=== PATIENT | female | born 1995 | race Caucasian/White ===

== ENCOUNTER 2017-02-12 21:12 | Emergency (ER) | payer BC, MEDICAID ==
--- NOTE | 2017-02-12 22:35 | EDM.PDOC ---
ED HPI GENERAL MEDICAL PROBLEM - General Chief Complaint: ENT Problem Stated Complaint: PT HAS TOOTHACHE Time Seen by Provider: 02/12/17 22:34 Source of Information: Reports: Patient - History of Present Illness INITIAL COMMENTS - FREE TEXT/NARRATIVE: HISTORY AND PHYSICAL: History of present illness: Patient is at approximately 13-3/7 weeks by dates LMP is November 10, 2016 she is followed through [facility] for her OB needs she has no symptoms relating to the no vaginal fluid leakage spotting bleeding pain low back pain or discharge Patient has dental pain she rated 6 out of 10 intermittently wax and wanes in severity appears that her wisdom teeth are coming in there is some swelling surrounding L Pl. her on antibiotics penicillin to cover that she should follow- up with dentist as soon as possible for evaluation and further treatment She's been using Tylenol for pain will also provide some dental balls No fever nausea vomiting chills sweats Review of systems: As per history of present illness and below otherwise all systems reviewed and negative. Past medical history: As per history of present illness and as reviewed below otherwise noncontributory. Surgical history: As per history of present illness and as reviewed below otherwise noncontributory. Social history: No reported history of drug or alcohol abuse. Family history: As per history of present illness and as reviewed below otherwise noncontributory. Physical exam: HEENT: Atraumatic, normocephalic, pupils reactive, negative for conjunctival pallor or scleral icterus, mucous membranes moist, throat clear, neck supple, nontender, trachea midline. Tenderness along lower gumline definitely wisdom teeth are coming in most of her pain is associated on the left rear tooth Lungs: Clear to auscultation, breath sounds equal bilaterally, chest nontender. Heart: S1S2, regular, negative for clicks, rubs, or JVD. Abdomen: Soft, nondistended, nontender. Negative for masses or hepatosplenomegaly. Negative for costovertebral tenderness. Pelvis: Stable nontender. Genitourinary: Deferred. Rectal: Deferred. Extremities: Atraumatic, negative for cords or calf pain. Neurovascular unremarkable. Neuro: Awake, alert, oriented. Cranial nerves II through XII unremarkable. Cerebellum unremarkable. Motor and sensory unremarkable throughout. Exam nonfocal. Diagnostics: [] Therapeutics: []Continue Tylenol 650 mg 3 times daily 7-10 days Amoxicillin 500 by mouth twice a day #20 no refill Follow-up with dentist as soon as possible Impression: []Dental pain secondary to wisdom teeth Definitive disposition and diagnosis as appropriate pending reevaluation and review of above. Left Lower Oral/Mouth Pain Score (Numeric/FACES): 3 - Related Data Allergies Allergy/AdvReac Type Severity Reaction Status Date / Time No Known Allergies Allergy Verified 02/12/17 22:34 Home Meds: Home Meds Vit W-Ca,Fe,FA(<1 mg) [ Vitamins] 1 tab PO DAILY 02/12/17 [ History] ED ROS GENERAL - Review of Systems Review Of Systems: ROS reveals no pertinent complaints other than HPI. ED EXAM, GENERAL - Physical Exam Exam: See Below Course - Vital Signs Last Recorded V/S: Last Vital Signs Temp 36.7 C 02/12/17 22:32 Pulse 92 02/12/17 22:32 Resp 16 02/12/17 22:32 BP 121/65 02/12/17 22:32 Pulse Ox 99 02/12/17 22:32 Departure - Departure Time of Disposition: 22:38 Disposition: Home, Self-Care 01 Condition: Good Clinical Impression: Pain, dental - Discharge Information Forms: ED Department Discharge Additional Instructions: Medication as prescribed Tylenol 650 mg 3 times daily 7-10 days Dental balls Follow-up with dentist as soon as possible Provide list of area dentist The following information is given to patients seen in the emergency department who are being discharged to home. This information is to outline your options for follow-up care. We provide all patients seen in our emergency department with a follow-up referral. The need for follow-up, as well as the timing and circumstances, are variable depending upon the specifics of your emergency department visit. If you don't have a primary care physician on staff, we will provide you with a referral. We always advise you to contact your personal physician following an emergency department visit to inform them of the circumstance of the visit and for follow-up with them and/or the need for any referrals to a consulting specialist. The emergency department will also refer you to a specialist when appropriate. This referral assures that you have the opportunity for follow-up care with a specialist. All of these measure are taken in an effort to provide you with optimal care, which includes your follow-up. Under all circumstances we always encourage you to contact your private physician who remains a resource for coordinating your care. When calling for follow-up care, please make the office aware that this follow-up is from your recent emergency room visit. If for any reason you are refused follow-up, please contact the [facility] emergency department at and asked to speak to the emergency department charge nurse.
[2017-02-12] MEDS ORDERED: Benzocaine 20% Topical Spray UD MUCMEM ONE (22:53)
[2017-02-12] MEDS ORDERED: Lidocaine 2% Viscous Solution 15 ML Cup ONE (22:53)
[2017-02-13] MEDS ORDERED: Lidocaine 2% Viscous Solution 15 ML Cup PO ONE (01:17)
[2017-02-13] MEDS ORDERED: Benzocaine 20% Topical Spray UD MUCMEM ONE (01:18)
[2017-02-13 01:22] VITALS: BP 120/63
== END 2017-02-12 22:58 | disposition home or self-care (01) ==
LOC: MW.ED 21:12
DX: O99.89 Other specified diseases and conditions complicating pregnancy, childbirth and the puerperium (principal); K08.89 Other specified disorders of teeth and supporting structures; Z3A.13 13 weeks gestation of pregnancy
CPT/HCPCS: 99282; A9270; 99283

== ENCOUNTER 2018-04-18 07:40 | Emergency (ER) | payer BC, MEDICAID ==
[2018-04-18 08:23] VITALS: BP 131/76
--- NOTE | 2018-04-18 08:57 | EDM.PDOC ---
ED HPI GENERAL MEDICAL PROBLEM - General Chief Complaint: ENT Problem Stated Complaint: EAR INFECTION- LEFT EAR Time Seen by Provider: 04/18/18 08:44 - History of Present Illness INITIAL COMMENTS - FREE TEXT/NARRATIVE: HISTORY AND PHYSICAL: History of present illness: The patient is a 22 year old female with a 2 day history of left ear pain and fever. She reports history of multiple ear infections since July. Last time she needed antibiotics was several months ago. She also endorses subjective fever. No nasal congestion, sore throat, headache, or chills. Review of systems: As per history of present illness and below otherwise all systems reviewed and negative. Past medical history: As per history of present illness and as reviewed below otherwise noncontributory. Surgical history: As per history of present illness and as reviewed below otherwise noncontributory. Social history: No reported history of drug or alcohol abuse. Family history: As per history of present illness and as reviewed below otherwise noncontributory. Physical exam: HEENT: Atraumatic, normocephalic, pupils reactive, negative for conjunctival pallor or scleral icterus, mucous membranes moist, throat clear, neck supple, nontender, trachea midline. Left TM with erythema, no mastoid tenderness or pain with movement of external ear. Lungs: Clear to auscultation, breath sounds equal bilaterally, chest nontender. Heart: S1S2, regular, negative for clicks, rubs, or JVD. Abdomen: Soft, nondistended, nontender. Neuro: Awake, alert, oriented. Cranial nerves II through XII unremarkable. Cerebellum unremarkable. Motor and sensory unremarkable throughout. Exam nonfocal. Diagnostics: [None] Therapeutics: [None] Impression: [Left otitis media] Plan: [Home with prescription for amoxicillin] Definitive disposition and diagnosis as appropriate pending reevaluation and review of above. 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 Surgical History HEENT Surgical History: Reports: Tonsillectomy Social & Family History - Family History Family Medical History: Noncontributory - Tobacco Use Smoking Status *Q: Never Smoker Second Hand Smoke Exposure: No - Caffeine Use Caffeine Use: Reports: Coffee, Energy Drinks, Soda, Tea - Recreational Drug Use Recreational Drug Use: No ED ROS ENT - Review of Systems Review Of Systems: See Below (See dictation) ED EXAM, ENT - Physical Exam Exam: See Below (See dictation) Course - Vital Signs Last Recorded V/S: Last Vital Signs Temp 97.5 F 04/18/18 08:20 Pulse 85 04/18/18 08:20 Resp 16 04/18/18 08:20 BP 131/76 04/18/18 08:20 Pulse Ox 99 04/18/18 08:20 Departure - Departure Time of Disposition: 08:56 Disposition: Home, Self-Care 01 Condition: Good Clinical Impression: Otitis media - Discharge Information *PRESCRIPTION DRUG MONITORING PROGRAM REVIEWED*: Not Applicable *COPY OF PRESCRIPTION DRUG MONITORING REPORT IN PATIENT HEIDI: Not Applicable Prescriptions: Amoxicillin 500 mg PO BID 10 Days #20 tab Instructions: Otitis Media, Adult, [id number] Referrals: PCP,None [Primary Care Provider] - Forms: ED Department Discharge Additional Instructions: My general discharge The following information is given to patients seen in the emergency department who are being discharged to home. This information is to outline your options for follow-up care. We provide all patients seen in our emergency department with a follow-up referral. The need for follow-up, as well as the timing and circumstances, are variable depending upon the specifics of your emergency department visit. If you don't have a primary care physician on staff, we will provide you with a referral. We always advise you to contact your personal physician following an emergency department visit to inform them of the circumstance of the visit and for follow-up with them and/or the need for any referrals to a consulting specialist. The emergency department will also refer you to a specialist when appropriate. This referral assures that you have the opportunity for follow-up care with a specialist. All of these measure are taken in an effort to provide you with optimal care, which includes your follow-up. Under all circumstances we always encourage you to contact your private physician who remains a resource for coordinating your care. When calling for follow-up care, please make the office aware that this follow-up is from your recent emergency room visit. If for any reason you are refused follow-up, please contact the [facility] Emergency Department at and asked to speak to the emergency department charge nurse. My Primary Care [facility] [address] [place] [id number] Please follow up with your primary care provider if no improvement or worsening of symptoms.
== END 2018-04-18 09:30 | disposition home or self-care (01) ==
LOC: MW.ED 07:40
DX: H66.92 Otitis media, unspecified, left ear (principal); Z98.890 Other specified postprocedural states
CPT/HCPCS: 99282

== ENCOUNTER 2018-12-01 10:42 | Emergency (ER) | payer BC, OTHER ==
--- NOTE | 2018-12-01 10:54 | EDM.PDOC ---
ED HPI GENERAL MEDICAL PROBLEM - General Chief Complaint: Laceration Stated Complaint: LACERATION ON FINGER Time Seen by Provider: 12/01/18 10:43 Source of Information: Reports: Patient History Limitations: Reports: No Limitations - History of Present Illness INITIAL COMMENTS - FREE TEXT/NARRATIVE: HISTORY AND PHYSICAL: History of present illness: Patient is a 23-year-old female who presents to the emergency room with complaints of a laceration to her left index finger below the MIP joint. Patient works at [employer] and was cutting up some food when she knew her finger. Appears to have no tendon involvement. There is no current bleeding. Offers no other complaints or concerns other than the laceration. Tdap has been updated in the last 5 years. Review of systems: As per history of present illness and below otherwise all systems reviewed and negative. Past medical history: As per history of present illness and as reviewed below otherwise noncontributory. Surgical history: As per history of present illness and as reviewed below otherwise noncontributory. Social history: See social history for further information Family history: As per history of present illness and as reviewed below otherwise noncontributory. Physical exam: General: Well-developed and well-nourished 23-year-old female. Alert and oriented. Nontoxic appearing and in no acute distress. HEENT: Atraumatic, normocephalic, pupils equal and reactive bilaterally, negative for conjunctival pallor or scleral icterus, mucous membranes moist, trachea midline. No drooling or trismus noted. No meningeal signs. No hot potato voice noted. Lungs: Clear to auscultation, breath sounds equal bilaterally, chest nontender. Heart: S1S2, regular rate and rhythm without overt murmur Skin: 1 cm superficial laceration to the left index finger below the MIP joint. Otherwise skin is intact, warm, dry. No lesions or rashes noted. Extremities: See skin, moves all extremities per self without difficulty or deficits, appears to have no tendon involvement. Neurovascular unremarkable. Neuro: Awake, alert, oriented. Cranial nerves II through XII unremarkable. Cerebellum unremarkable. Motor and sensory unremarkable throughout. Exam nonfocal. Notes: Patient is tearful stating she doesn't want stitches. The laceration does appear that it will do well with Dermabond. Area was thoroughly cleansed with chlorhexidine and patted dry. Dermabond was used to close the superficial laceration. A spoon splint/nonstick dressing applied for comfort. Supportive care measures were reviewed and discussed. Voices understanding and is agreeable to plan of care. Denies any further questions or concerns at this time. Diagnostics: None Therapeutics: Wound care, Dermabond, spoon splint Prescription: None Impression: Finger laceration Plan: 1. Keep the area clean and dry. Continue to monitor for signs of infection. Dermabond will fall off in 3-7 days (do not pull off). 2. Tylenol and/or ibuprofen as needed for pain management. 3. Please follow-up with your primary care provider in the next 1-2 days. Return to the ED as needed and as discussed. Definitive disposition and diagnosis as appropriate pending reevaluation and review of above. Left Finger-Index Pain Score (Numeric/FACES): 1 - Related Data Allergies Allergy/AdvReac Type Severity Reaction Status Date / Time No Known Allergies Allergy Verified 12/01/18 10:55 Home Meds: Home Meds . 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 ED EXAM, SKIN/RASH Exam: See Below (See dictation) ED SKIN PROCEDURES - Laceration/Wound Repair Left index finger Lac/Wound length In cm: 1 Appearance: Superficial, Clean Distal NVT: Neuro & Vascular Intact, No Tendon Injury Skin Prep: Chlorhexidine (Hibiciens) Exploration/Debridement/Repair: Wound Explored, No Foreign Material Found Closed with: Dermabond Drain Placement: No Sterile Dressing Applied: None Tetanus Status Addressed: Yes Complications: No Course - Vital Signs Last Recorded V/S: Last Vital Signs Temp 97.8 F 12/01/18 10:50 Pulse 95 12/01/18 10:50 Resp 18 12/01/18 10:50 BP 132/82 12/01/18 10:50 Pulse Ox 100 12/01/18 10:50 - Orders/Labs/Meds Meds: Medications Discontinued Medications Generic Name Dose Route Start Last Admin Trade Name Lisa PRN Reason Stop Dose Admin Octyl Cyanoacrylate 1 applic 12/01/18 10:58 Dermabond Advance TOP 12/01/18 10:59 ONETIME ONE Departure - Departure Time of Disposition: 11:01 Disposition: Home, Self-Care 01 Clinical Impression: Finger laceration Qualifiers: Encounter type: initial encounter Finger: index finger Damage to nail status: without damage Foreign body presence: without foreign body Laterality: left Qualified Code(s): S61.211A - Laceration without foreign body of left index finger without damage to nail, initial encounter - Discharge Information Instructions: Laceration Care, Adult, [id number] Referrals: PCP,None [Primary Care Provider] - Forms: ED Department Discharge Additional Instructions: The following information is given to patients seen in the emergency department who are being discharged to home. This information is to outline your options for follow-up care. We provide all patients seen in our emergency department with a follow-up referral. The need for follow-up, as well as the timing and circumstances, are variable depending upon the specifics of your emergency department visit. If you don't have a primary care physician on staff, we will provide you with a referral. We always advise you to contact your personal physician following an emergency department visit to inform them of the circumstance of the visit and for follow-up with them and/or the need for any referrals to a consulting specialist. The emergency department will also refer you to a specialist when appropriate. This referral assures that you have the opportunity for follow-up care with a specialist. All of these measure are taken in an effort to provide you with optimal care, which includes your follow-up. Under all circumstances we always encourage you to contact your private physician who remains a resource for coordinating your care. When calling for follow-up care, please make the office aware that this follow-up is from your recent emergency room visit. If for any reason you are refused follow-up, please contact the [facility] Emergency Department at and asked to speak to the emergency department charge nurse. [facility] Primary [facility] [address] [place] [id number] [facility] [address] [place] [phone] 1. Keep the area clean and dry. Continue to monitor for signs of infection. Dermabond will fall off in 3-7 days (do not pull off). 2. Tylenol and/or ibuprofen as needed for pain management. 3. Please follow-up with your primary care provider in the next 1-2 days. Return to the ED as needed and as discussed.
[2018-12-01] MEDS ORDERED: Octyl 2-Cyanoacrylate 1 Tube TOP ONE (10:58)
[2018-12-01 11:49] VITALS: BP 128/76
== END 2018-12-01 11:49 | disposition home or self-care (01) ==
LOC: MW.ED 10:42
DX: S61.211A Laceration without foreign body of left index finger without damage to nail, initial encounter (principal); W45.8XXA Other foreign body or object entering through skin, initial encounter
CPT/HCPCS: 12001; 99282; A9270

== ENCOUNTER 2019-01-22 00:17 | Emergency (ER) | payer BC, OTHER ==
--- NOTE | 2019-01-22 00:35 | EDM.PDOC ---
ED HPI GENERAL MEDICAL PROBLEM - General Chief Complaint: Flank Pain Time Seen by Provider: 01/22/19 00:27 - History of Present Illness INITIAL COMMENTS - FREE TEXT/NARRATIVE: HISTORY AND PHYSICAL: History of present illness: Patient's 23-year-old female presents with a concern of discomfort and frequency of urination. No fever chills nausea vomiting or other concern. Review of systems: As per history of present illness and below otherwise all systems reviewed and negative. Past medical history: As per history of present illness and as reviewed below otherwise noncontributory. Surgical history: As per history of present illness and as reviewed below otherwise noncontributory. Social history: No reported history of drug or alcohol abuse. Family history: As per history of present illness and as reviewed below otherwise noncontributory. Physical exam: HEENT: Atraumatic, normocephalic, pupils reactive, negative for conjunctival pallor or scleral icterus, mucous membranes moist, throat clear, neck supple, nontender, trachea midline. Lungs: Clear to auscultation, breath sounds equal bilaterally, chest nontender. Heart: S1S2, regular, negative for clicks, rubs, or JVD. Abdomen: Soft, nondistended, nontender. Negative for masses or hepatosplenomegaly. Negative for costovertebral tenderness. Pelvis: Stable nontender. Genitourinary: Deferred. Rectal: Deferred. Extremities: Atraumatic, negative for cords or calf pain. Neurovascular unremarkable. Neuro: Awake, alert, oriented. Cranial nerves II through XII unremarkable. Cerebellum unremarkable. Motor and sensory unremarkable throughout. Exam nonfocal. Diagnostics: UA hCG Therapeutics: None Impression: #1 urinary tract infection Definitive disposition and diagnosis as appropriate pending reevaluation and review of above. left flank Pain Score (Numeric/FACES): 8 - Related Data Allergies Allergy/AdvReac Type Severity Reaction Status Date / Time No Known Allergies Allergy Verified 01/22/19 00:23 Home Meds: Home Meds . 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 ED EXAM, GENERAL - Physical Exam Exam: See Below (See dictation) Course - Vital Signs Last Recorded V/S: Last Vital Signs Temp 35.6 C 01/22/19 00:20 Pulse 90 01/22/19 00:20 Resp 17 01/22/19 00:20 BP 133/77 01/22/19 00:20 Pulse Ox 98 01/22/19 00:20 - Orders/Labs/Meds Orders: Active Orders 24 hr Category Date Time Status HCG QUALITATIVE,URINE [URCHEM] Stat Lab 01/22/19 00:24 Ordered Departure - Departure Time of Disposition: 00:33 Disposition: Home, Self-Care 01 Condition: Good Clinical Impression: UTI, Urinary tract infectious disease - Discharge Information Referrals: PCP,None [Primary Care Provider] - Additional Instructions: The following information is given to patients seen in the emergency department who are being discharged to home. This information is to outline your options for follow-up care. We provide all patients seen in our emergency department with a follow-up referral. The need for follow-up, as well as the timing and circumstances, are variable depending upon the specifics of your emergency department visit. If you don't have a primary care physician on staff, we will provide you with a referral. We always advise you to contact your personal physician following an emergency department visit to inform them of the circumstance of the visit and for follow-up with them and/or the need for any referrals to a consulting specialist. The emergency department will also refer you to a specialist when appropriate. This referral assures that you have the opportunity for followup care with a specialist. All of these measure are taken in an effort to provide you with optimal care, which includes your followup. Under all circumstances we always encourage you to contact your private physician who remains a resource for coordinating your care. When calling for followup care, please make the office aware that this follow-up is from your recent emergency room visit. If for any reason you are refused follow-up, please contact the [facility] emergency department at and asked to speak to the emergency department charge nurse. [facility] [address] [place] [id number] Bactrim as prescribed Pyridium as prescribed follow-up primary care above return as needed as discussed - My Orders Last 24 Hours: My Active Orders 01/22/19 00:24 HCG QUALITATIVE,URINE [URCHEM] Stat - Assessment/Plan Last 24 Hours: My Active Orders 01/22/19 00:24 HCG QUALITATIVE,URINE [URCHEM] Stat
[2019-01-22 01:12] VITALS: BP 133/77
== END 2019-01-22 01:13 | disposition home or self-care (01) ==
LOC: MW.ED 00:17
DX: N39.0 Urinary tract infection, site not specified (principal); Z98.890 Other specified postprocedural states
CPT/HCPCS: 81001; 81025; 99284

== ENCOUNTER 2019-05-04 11:53 | Emergency (ER) | payer SELFPAY ==
[2019-05-04 12:08] VITALS: BP 108/73; PULSE 93
--- NOTE | 2019-05-04 12:12 | EDM.PDOC ---
ED HPI GENERAL MEDICAL PROBLEM - General Chief Complaint: ENT Problem Stated Complaint: VOMITING Time Seen by Provider: 05/04/19 11:54 Source of Information: Reports: Patient History Limitations: Reports: No Limitations - History of Present Illness INITIAL COMMENTS - FREE TEXT/NARRATIVE: History of present illness: []She has had 2 days of headache, congestion, ear pain, vomiting and dizziness. She's having hot and cold flashes and has measured a 101 temperature. He denies a Sore throat or difficulty breathing. Review of systems: As per history of present illness and below otherwise all systems reviewed and negative. Past medical history: As per history of present illness and as reviewed below otherwise noncontributory. Surgical history: As per history of present illness and as reviewed below otherwise noncontributory. Social history: No reported history of drug or alcohol abuse. Family history: As per history of present illness and as reviewed below otherwise noncontributory. Physical exam: General: Well developed, well nourished in NAD HEENT: Atraumatic, normocephalic, pupils reactive, negative for conjunctival pallor or scleral icterus, mucous membranes moist, throat clear, neck supple, nontender, trachea midline. TMs clear, frontal and left maxillary sinus tenderness to palpation, no stridor Lungs: Clear to auscultation, breath sounds equal bilaterally, chest nontender. No wheezing or rhonchi Heart: S1S2, regular, negative for clicks, rubs, or JVD. Abdomen: NABS, Soft, nondistended, nontender. Negative for masses or hepatosplenomegaly. Negative for costovertebral tenderness. Pelvis: Stable nontender. Genitourinary: Deferred. Rectal: Deferred. Extremities: Atraumatic, negative for cords or calf pain. Neurovascular unremarkable. Neuro: Awake, alert, oriented. Cranial nerves II through XII unremarkable. Cerebellum unremarkable. Motor and sensory unremarkable throughout. Exam nonfocal. Skin:warm and dry Diagnostics: None Therapeutics: None ED Course: Stable Impression: Acute sinusitis Prescriptions: Amoxicillin Plan: Take meds as directed, follow up with your primary care physician, return to ER if symptoms worsen or change. Definitive disposition and diagnosis as appropriate pending reevaluation and review of above. Head Pain Score (Numeric/FACES): 5 - Related Data Allergies Allergy/AdvReac Type Severity Reaction Status Date / Time No Known Allergies Allergy Verified 05/04/19 12:05 Home Meds: Home Meds Amoxicillin 500 mg PO TID #21 capsule 05/04/19 [Rx] Ondansetron HCl [Zofran] 4 mg PO Q4HR #12 tablet 05/04/19 [Rx] Past Medical History - Past Health History Medical/Surgical History: Denies Medical/Surgical History A[employer] MED[employer] CLAIMS History: Reports: - Infectious Disease History Infectious Disease History: Reports: None - Past Surgical History HEENT Surgical History: Reports: Tonsillectomy Social & Family History - Family History Family Medical History: Noncontributory - Tobacco Use Smoking Status *Q: Never Smoker - Caffeine Use Caffeine Use: Reports: Coffee - Recreational Drug Use Recreational Drug Use: No ED ROS ENT - Review of Systems Review Of Systems: See Below ED EXAM, ENT - Physical Exam Exam: See Below Course - Vital Signs Last Recorded V/S: Last Vital Signs Temp 97.9 F 05/04/19 12:05 Pulse 93 05/04/19 12:05 Resp 16 05/04/19 12:05 BP 108/73 05/04/19 12:05 Pulse Ox 96 05/04/19 12:05 Departure - Departure Time of Disposition: 12:12 Disposition: Home, Self-Care 01 Condition: Good Clinical Impression: Acute sinusitis Qualifiers: Sinusitis location: frontal Recurrence: non-recurrent Qualified Code(s): J01.10 - Acute frontal sinusitis, unspecified - Discharge Information *PRESCRIPTION DRUG MONITORING PROGRAM REVIEWED*: No *COPY OF PRESCRIPTION DRUG MONITORING REPORT IN PATIENT HEIDI: No Prescriptions: Ondansetron HCl [Zofran] 4 mg PO Q4HR #12 tablet Amoxicillin 500 mg PO TID #21 capsule Referrals: PCP,Unknown [Primary Care Provider] - Forms: ED Department Discharge Additional Instructions: The following information is given to patients seen in the emergency department who are being discharged to home. This information is to outline your options for follow-up care. We provide all patients seen in our emergency department with a follow-up referral. The need for follow-up, as well as the timing and circumstances, are variable depending upon the specifics of your emergency department visit. If you don't have a primary care physician on staff, we will provide you with a referral. We always advise you to contact your personal physician following an emergency department visit to inform them of the circumstance of the visit and for follow-up with them and/or the need for any referrals to a consulting specialist. The emergency department will also refer you to a specialist when appropriate. This referral assures that you have the opportunity for follow-up care with a specialist. All of these measure are taken in an effort to provide you with optimal care, which includes your follow-up. Under all circumstances we always encourage you to contact your private physician who remains a resource for coordinating your care. When calling for follow-up care, please make the office aware that this follow-up is from your recent emergency room visit. If for any reason you are refused follow-up, please contact the [facility] Emergency Department at and asked to speak to the emergency department charge nurse. Take meds as directed, follow up with your primary care physician, return to ER if symptoms worsen or change. [facility] Primary [facility] [address] [place] [id number]
== END 2019-05-04 12:25 | disposition home or self-care (01) ==
LOC: MW.ED 11:53
DX: J01.10 Acute frontal sinusitis, unspecified (principal)
CPT/HCPCS: 99282

== ENCOUNTER 2022-09-26 16:19 | Inpatient (IN) | payer MEDICAID ==
[2022-09-26] MEDS ORDERED: Butorphanol 1 MG/ML SDV IVPUSH ONE (17:53)
[2022-09-26] MEDS ORDERED: Carboprost Tromethamine 250 MCG/1 ML Amp IM PRN (19:09)
[2022-09-26] MEDS ORDERED: Sodium Chloride 0.9% 20 ML SDV IV PRN (19:09)
[2022-09-26] MEDS ORDERED: Butorphanol 1 MG/ML SDV IVPUSH PRN (19:09)
[2022-09-26] MEDS ORDERED: Sodium Chloride 0.9% 2.5 ML Syringe FLUSH PRN (19:09)
[2022-09-26] MEDS ORDERED: Misoprostol 200 MCG Tab PO PRN (19:09)
[2022-09-26] MEDS ORDERED: Methylergonovine 0.2 MG/1 ML Amp IM PRN (19:09)
[2022-09-26] MEDS ORDERED: Water For Irrigation,Sterile 1,000 ML Container IRR PRN (19:09)
[2022-09-26] MEDS ORDERED: Sodium Chloride 0.9% 10 ML Syringe FLUSH PRN (19:09)
[2022-09-26] MEDS ORDERED: Tranexamic Acid 1,000 MG in Sodium Chloride 0.9% 100 ML IV PRN (19:09)
[2022-09-26] MEDS ORDERED: Lidocaine 1% 50 ML MDV INJECT PRN (19:09)
[2022-09-26] MEDS ORDERED: Oxytocin/0.9 % Sodium Chloride 30 UNIT/500 ML BAG IV SCH (19:15)
[2022-09-26] MEDS ORDERED: Phenylephrine HCl In 0.9% NaCl 1 MG/10 ML Vial IVPUSH PRN (19:19)
[2022-09-26] MEDS ORDERED: ePHEDrine 50 MG/ML SDV IVPUSH PRN ×2 (19:19)
[2022-09-26] MEDS ORDERED: Ropivacaine HCl/PF 400 MG in Premix Bag 1 BAG EPIDUR SCH (19:30)
[2022-09-26] MEDS: Lactated Ringers 1,000 ML IV SCH ×2 (19:35→22:43)
[2022-09-26] MEDS ORDERED: Dexmedetomidine 200 MCG/2 ML SDV ONE (19:36)
[2022-09-26] MEDS ORDERED: Sodium Chloride 0.9% 0 ML ONE (19:36)
[2022-09-26] MEDS ORDERED: Ampicillin 2 GM Vial ONE (19:36)
[2022-09-26] MEDS ORDERED: Ondansetron 4 MG/2 ML SDV IVPUSH PRN (23:02)
[2022-09-26] MEDS: Phenylephrine HCl In 0.9% NaCl 1 MG/10 ML Vial IVPUSH SCH (23:40)
[2022-09-27] MEDS ORDERED: Lanolin 100% Cream 7 GM Tube TOP PRN (02:38)
[2022-09-27] MEDS ORDERED: Docusate Sodium 100 MG Cap PO PRN (02:38)
[2022-09-27] MEDS ORDERED: oxyCODONE 5 MG Tab PO PRN (02:38)
[2022-09-27] MEDS ORDERED: Acetaminophen 500 MG Tab PO PRN ×2 (02:38)
[2022-09-27] MEDS ORDERED: Witch Hazel Medicated Pads 40/Jar TOP PRN (02:38)
[2022-09-27] MEDS ORDERED: Ibuprofen 400 MG Tab PO PRN (02:38)
[2022-09-27] MEDS ORDERED: Bisacodyl 10 MG Supp RECTAL PRN (02:38)
[2022-09-27] MEDS ORDERED: Benzocaine/Menthol 20%-0.5% Spray 78 GM Cannister TOP PRN (02:38)
[2022-09-27] MEDS: Ibuprofen 800 MG Tab PO PRN ×2 (06:14→16:04)
[2022-09-28 09:05] VITALS: BP 91/53; PULSE 67
== END 2022-09-28 02:30 | disposition home or self-care (01) | DRG 807 ==
LOC: MW.OBCHECK 16:19 → MW.OB 16:19 → MW.OBCHECK 19:09 → OBSVTOIN 09-27 02:28 → MW.OB 09-27 05:45
PROVIDERS: ADMIT Obstetrics & Gynecology; ATTEND Obstetrics & Gynecology
PROC: 10E0XZZ Delivery of Products of Conception, External Approach (ICD-10-PCS; principal; 2022-09-27)
PROC: 3E0R3BZ Introduction of Anesthetic Agent into Spinal Canal, Percutaneous Approach (ICD-10-PCS; 2022-09-27)
PROC: 00HU33Z Insertion of Infusion Device into Spinal Canal, Percutaneous Approach (ICD-10-PCS; 2022-09-27)
DX: O80 Encounter for full-term uncomplicated delivery (principal); Z37.0 Single live birth; Z20.822 Contact with and (suspected) exposure to COVID-19; Z3A.38 38 weeks gestation of pregnancy
CPT/HCPCS: 01967; 36415; 51702; 59025; 59409; 80305-QW; 81003; 85014; 85018; 85027; 86592; 86762; 86803; 86850; 86900; 86901; 87340; 87389; A9270-GY; J0595; J2405; J2590; J3490; J7120; U0002

== ENCOUNTER 2023-06-18 21:33 | Day surgery (SDC) | payer MEDICAID ==
[2023-06-18] MEDS ORDERED: Sodium Chloride 0.9% 10 ML Syringe FLUSH PRN (21:57)
[2023-06-18] MEDS ORDERED: Sodium Chloride 0.9% 2.5 ML Syringe FLUSH PRN (21:57)
[2023-06-18 22:20] LABS: BASOPHILS ABSOLUTE AUTO 0.04 K/uL (0.00-0.20); BASOPHILS PERCENT AUTO 0.4 % (0.0-1.0); EOSINOPHILS ABSOLUTE AUTO 0.15 K/uL (0.00-0.45); EOSINOPHILS PERCENT AUTO 1.5 % (0.0-6.0); HEMOGLOBIN 8.9 g/dL (12.0-16.0); IMMATURE GRAN ABSOLUTE AUTO 0.02 K/uL (0.00-0.05); IMMATURE GRAN PERCENT AUTO 0.2 % (0.0-0.4); LYMPHOCYTES ABSOLUTE AUTO 2.12 K/uL (1.00-4.80); LYMPHOCYTES PERCENT AUTO 21.1 % (24.0-44.0); MEAN CORPUSCULAR HEMOGLOBIN 25.4 pg (28.0-32.0); MEAN CORPUSCULAR VOLUME 77.1 fL (83.0-99.0); MEAN PLATELET VOLUME 9.4 fL (9.4-12.3); MONOCYTES ABSOLUTE AUTO 0.68 K/uL (0.00-0.80); MONOCYTES PERCENT AUTO 6.8 % (0.0-8.0); NEUTROPHILS ABSOLUTE AUTO 7.06 K/uL (1.80-7.70); PLATELET COUNT,PLT 400 K/uL (150-400); WHITE BLOOD CELL COUNT,WBC 10.07 K/uL (3.9-11.3)
[2023-06-18 22:34] LABS: APPEARANCE,URINE CLOUDY; BILIRUBIN,URINE NEGATIVE (NEGATIVE); COLOR,URINE RED; GLUCOSE,URINE NEGATIVE (NEGATIVE); KETONES,URINE NEGATIVE (NEGATIVE); LEUKOCYTE ESTERASE,URINE TRACE (NEGATIVE); NITRITE,URINE NEGATIVE (NEGATIVE); OCCULT BLOOD,URINE LARGE (NEGATIVE); PH,URINE 6.5 (5.0-8.0); PROTEIN,URINE 30 mg/dL (NEGATIVE); UROBILINOGEN,URINE 0.2 EU/dL (<2.0)
[2023-06-18 22:35] LABS: EPITHELIAL CELLS,URINE FEW (NONE-FEW); RBC,URINE TOO NUMEROUS TO CT (0-2/HPF)
[2023-06-18 22:36] LABS: BACTERIA,URINE FEW (NEGATIVE)
[2023-06-18 22:50] LABS: A/G RATIO 0.9 (0.9-1.6); ALBUMIN 3.6 g/dL (3.4-5.0); BILIRUBIN TOTAL 0.3 mg/dL (0.2-1.0); CALCIUM 8.6 mg/dL (8.5-10.1); CARBON DIOXIDE,CO2 26.8 mmol/L (21.0-32.0); CREATININE 0.7 mg/dL (0.6-1.0); EST CRCL DRUG DOSING (CG) 92.71 mL/min; POTASSIUM,K 4.3 mmol/L (3.5-5.1); PROTEIN TOTAL,TP 7.8 g/dL (6.4-8.2)
[2023-06-18 22:56] LABS: TSH ULTRASENSITIVE 1.48 uIU/mL (0.36-3.74)
[2023-06-18 23:28] LABS: INR 1.07 (0.86-1.11); PTT,PARTIAL THROMBOPLSTIN TIME 28.6 SEC (23.9-30.7)
[2023-06-19] MEDS ORDERED: Ondansetron 4 MG/2 ML SDV IVPUSH PRN ×2 (00:25→01:21)
[2023-06-19] MEDS ORDERED: ceFAZolin 2 GM in Sodium Chloride 0.9% 50 ML IV ONE (00:25)
[2023-06-19] MEDS ORDERED: Acetaminophen 325 MG Tab PO PRN (00:25)
[2023-06-19] MEDS ORDERED: Lactated Ringers 1,000 ML IV SCH (00:30)
[2023-06-19] MEDS ORDERED: fentaNYL 100 MCG/2 ML SDV ONE (00:56)
[2023-06-19] MEDS ORDERED: Rocuronium Bromide 50 MG/5 ML Syringe ONE (00:56)
[2023-06-19] MEDS ORDERED: Propofol 200 MG/20 ML SDV ONE (00:56)
[2023-06-19] MEDS ORDERED: Sugammadex Sodium 200 MG/2 ML VIAL ONE (00:56)
[2023-06-19] MEDS ORDERED: Dexamethasone 4 MG/ML 5 ML MDV ONE (00:56)
[2023-06-19] MEDS ORDERED: Lidocaine 2% 5 ML SDV ONE (00:56)
[2023-06-19] MEDS ORDERED: Ondansetron 4 MG/2 ML SDV ONE (00:56)
[2023-06-19] MEDS ORDERED: Ketorolac 30 MG/ML SDV ONE (00:56)
[2023-06-19] MEDS ORDERED: Phenylephrine HCl 0.5 MG/5 ML AMP ONE (01:14)
[2023-06-19] MEDS ORDERED: Albuterol 0.083% 2.5 MG/3 ML Neb Soln NEB PRN (01:21)
[2023-06-19] MEDS ORDERED: Morphine 2 MG/ML SYRINGE IVPUSH PRN (01:21)
[2023-06-19] MEDS ORDERED: droPERidol 5 MG/2 ML SDV IVPUSH PRN (01:21)
[2023-06-19] MEDS ORDERED: fentaNYL 50 MCG/ML SDV IVPUSH PRN (01:21)
[2023-06-19] MEDS ORDERED: Metoclopramide 10 MG/2 ML SDV IVPUSH PRN (01:21)
[2023-06-19] MEDS ORDERED: Naloxone 0.4 MG/ML SDV IVPUSH PRN (01:21)
[2023-06-19] MEDS ORDERED: HYDROmorphone 1 MG/ML Syringe IVPUSH PRN (01:21)
[2023-06-19 03:18] LABS: HEMATOCRIT 28.2 % (37.0-47.0); HEMOGLOBIN 9.3 g/dL (12.0-16.0); MEAN CORPUSCULAR HEMOGLOBIN 26.2 pg (28.0-32.0); MEAN CORPUSCULAR VOLUME 79.4 fL (83.0-99.0); PLATELET COUNT,PLT 309 K/uL (150-400); RED BLOOD CELL COUNT 3.55 M/uL (4.10-5.30); WHITE BLOOD CELL COUNT,WBC 9.84 K/uL (3.9-11.3)
[2023-06-19 03:31] VITALS: PULSE 80
[2023-06-19 04:28] VITALS: BP 110/60
== END 2023-06-19 04:25 | disposition home or self-care (01) ==
LOC: MW.ED 21:33 → MW.OB 06-19 00:12 → MW.SDS 06-19 00:12
PROVIDERS: ATTEND Obstetrics & Gynecology
DX: O03.4 Incomplete spontaneous abortion without complication (principal)
CPT/HCPCS: 36415; 36430; 51701; 59812; 76817; 80053; 81001; 84443; 84702; 85025; 85027; 85610; 85730; 86850; 86900; 86901; 86920; 99291; C1729; J0690; J1100; J1885; J2371; J2704; J3010; J3490; P9016; J2405

== ENCOUNTER 2023-12-21 21:20 | Emergency (ER) | payer MEDICAID ==
[2023-12-21] MEDS: Ibuprofen 800 MG Tab PO STA (22:29)
[2023-12-21] MEDS: Sodium Chloride 0.9% 1,000 ML IV STA ×2 (22:30)
[2023-12-21] MEDS: cefTRIAXone 2 GM in Sodium Chloride 0.9% 50 ML IV STA (22:31)
[2023-12-21] MEDS: Azithromycin 500 MG in Sodium Chloride 0.9% 250 ML IV STA (22:35)
[2023-12-21] MEDS: cefTRIAXone 1 GM Vial IV STA (22:36)
[2023-12-21 22:38] LABS: BASOPHILS ABSOLUTE AUTO 0.03 K/uL (0.00-0.20); BASOPHILS PERCENT AUTO 0.3 % (0.0-1.0); EOSINOPHILS ABSOLUTE AUTO 0.15 K/uL (0.00-0.45); EOSINOPHILS PERCENT AUTO 1.4 % (0.0-6.0); HEMOGLOBIN 11.8 g/dL (12.0-16.0); IMMATURE GRAN ABSOLUTE AUTO 0.04 K/uL (0.00-0.05); IMMATURE GRAN PERCENT AUTO 0.4 % (0.0-0.4); LYMPHOCYTES PERCENT AUTO 5.8 % (24.0-44.0); MEAN CORPUSCULAR HEMOGLOBIN 26.5 pg (28.0-32.0); MEAN CORPUSCULAR HGB CONC 33.7 g/dL (32.0-36.0); MEAN CORPUSCULAR VOLUME 78.7 fL (83.0-99.0); MONOCYTES ABSOLUTE AUTO 0.72 K/uL (0.00-0.80); MONOCYTES PERCENT AUTO 6.9 % (0.0-8.0); NEUTROPHILS ABSOLUTE AUTO 8.86 K/uL (1.80-7.70); NEUTROPHILS PERCENT AUTO 85.2 % (41.0-71.0); PLATELET COUNT,PLT 345 K/uL (150-400); RED BLOOD CELL COUNT 4.45 M/uL (4.10-5.30)
[2023-12-21 22:56] LABS: INR 1.03 (0.86-1.11)
[2023-12-21 23:02] LABS: A/G RATIO 0.7 (0.9-1.6); ALANINE AMINOTRANSFERASE,ALT 17 IU/L (14-63); ALBUMIN 3.2 g/dL (3.4-5.0); ALKALINE PHOSPHATASE 87 U/L (46-116); ASPARTATE AMNIOTRANSFERASE,AST 12 IU/L (15-37); BILIRUBIN TOTAL 0.3 mg/dL (0.2-1.0); BLOOD UREA NITROGEN,BUN 12 mg/dL (7.0-18.0); CALCIUM 8.8 mg/dL (8.5-10.1); CARBON DIOXIDE,CO2 24.3 mmol/L (21.0-32.0); CHLORIDE,CL 101 mmol/L (98-107); CREATININE 0.9 mg/dL (0.6-1.0); EST CRCL DRUG DOSING (CG) 71.48 mL/min; GLUCOSE RANDOM 110 mg/dL (74-106); POTASSIUM,K 3.9 mmol/L (3.5-5.1); PROTEIN TOTAL,TP 7.7 g/dL (6.4-8.2); SODIUM,NA 135 mmol/L (136-145)
[2023-12-21 23:05] LABS: ESTIMATED GFR 90 mL/min (>60)
[2023-12-21 23:21] LABS: CORONAVIRUS COVID-19 NAA NEGATIVE (NEGATIVE); INFLUENZA A NAA NEGATIVE (NEGATIVE); INFLUENZA B NAA NEGATIVE (NEGATIVE); RESPIRATORY SYNCYTIAL VIR NAA NEGATIVE (NEGATIVE)
[2023-12-21] MEDS: Iopamidol 755 MG/ML 500 ML Multipack Bottle IVPUSH ONE (23:47)
[2023-12-21] MEDS: Ondansetron 4 MG/2 ML SDV IVPUSH ONE (23:58)
[2023-12-22 00:07] LABS: APPEARANCE,URINE SLT CLOUDY; BILIRUBIN,URINE NEGATIVE (NEGATIVE); COLOR,URINE YELLOW; GLUCOSE,URINE NEGATIVE (NEGATIVE); KETONES,URINE NEGATIVE (NEGATIVE); LEUKOCYTE ESTERASE,URINE SMALL (NEGATIVE); NITRITE,URINE NEGATIVE (NEGATIVE); OCCULT BLOOD,URINE NEGATIVE (NEGATIVE); PROTEIN,URINE NEGATIVE (NEGATIVE); UROBILINOGEN,URINE 0.2 EU/dL (<2.0)
[2023-12-22 00:15] LABS: BACTERIA,URINE RARE (NEGATIVE); EPITHELIAL CELLS,URINE MANY (NONE-FEW); RBC,URINE 0-2 (0-2/HPF)
[2023-12-22] MEDS: Ketorolac 30 MG/ML SDV IVPUSH ONE (01:18)
[2023-12-22 01:38] VITALS: BP 121/81; PULSE 94
== END 2023-12-22 01:25 | disposition home or self-care (01) ==
LOC: MW.ED 21:20
DX: J40 Bronchitis, not specified as acute or chronic (principal); Z79.899 Other long term (current) drug therapy; Z90.49 Acquired absence of other specified parts of digestive tract; Z75.8 Other problems related to medical facilities and other health care
CPT/HCPCS: 0241U; 36415; 71275; 80053; 81001; 83605; 83690; 84484; 84703; 85025; 85610; 87040; 87086; 87651; 93005; 96365; 96367; 96375; 99285; A9270; J0456; J0696; J1885; J2405; J3490; J7030; J7050; Q9967; 93010; 99284

== ENCOUNTER 2024-03-21 20:56 | Emergency (ER) | payer BC, MEDICAID ==
[2024-03-21] MEDS: Ibuprofen 600 MG Tab PO ONE (22:51)
[2024-03-21 23:51] VITALS: BP 122/72; PULSE 68
== END 2024-03-21 23:50 | disposition home or self-care (01) ==
LOC: MW.ED 20:56
DX: S93.401A Sprain of unspecified ligament of right ankle, initial encounter (principal); Z79.899 Other long term (current) drug therapy; Z90.49 Acquired absence of other specified parts of digestive tract; X50.0XXA Overexertion from strenuous movement or load, initial encounter
CPT/HCPCS: 73610; 73620; 99283; A9270